=== PATIENT | male | born 1960 | race Two or more races ===

== ENCOUNTER 2016-05-24 22:12 | Emergency (ER) | payer BC ==
[~2016-05-24] VITALS: Ht 190.5 cm; Wt 86.2 kg
[2016-05-24] MEDS ORDERED: IBUPROFEN800 MG ORAL (22:44)
[2016-05-24] MEDS ORDERED: AUGMENTIN 875-1 EAC1 ORAL (22:44)
[2016-05-24 23:02] VITALS: BP 122/74
--- NOTE | 2016-05-24 23:17 | Emergency Room Report ---
History of Present Illness General Chief Complaint: Skin Rash/Abscess Source: Patient Present Illness HPI 55YO M with progressive pain, swelling, redness to right calf since daughter's cat scratched and bit him 2 days prior. Patient was trying to break up fight between 2 cats. Denies assoc fever/chills, neck/auxillary swelling. Applying heat and cold to area of pain with some relief. Allergies: Coded Allergies: NO KNOWN ALLERGIES (Verified Allergy, Unknown, 05/24/16) Patient History Past Medical History: none Past Surgical History: none Pertinent Family History: none Social History: Denies: alcohol use, drug use, smoking Immunizations: UTD Reviewed Nursing Documentation: PMH: Agreed, PSxH: Agreed Nursing Documentation-PMH Past Medical History: No History, Except For Review of Systems All Other Systems: negative except mentioned in HPI Physical Exam Vital Signs Date Time Temp Pulse Resp B/P Pulse Ox O2 Delivery O2 Flow Rate FiO2 05/24/16 22:24 98.1 61 16 118/71 98 Room Air Sp02 EP Interpretation: reviewed, normal General Appearance: normal inspection, well appearing, no apparent distress, alert Head: atraumatic ENT: normal ENT inspection, hearing grossly normal, normal voice Neck: normal inspection, full range of motion, supple, no bony tend Respiratory: normal inspection, lungs clear, normal breath sounds, no respiratory distress, no retraction, no wheezing Cardiovascular #1: regular rate, rhythm, no edema Gastrointestinal: normal inspection, normal bowel sounds, non tender, soft, no guarding, no hernia Genitourinary: no CVA tenderness Musculoskeletal: normal inspection, back normal, normal range of motion, Ariella' s Sign negative Neurologic: normal inspection, alert, oriented x3, responsive, telephone sales representative III-XII nml as tested, motor strength/tone normal, speech normal Psychiatric: normal inspection, judgement/insight normal, mood/affect normal Skin: normal inspection, other - Right calf: 5-6cm oval area of palpable warmth , erythema and swelling. There are 2 definitie animal bite leo to calf. There are also multiple scratches to front of lower right extremity above the ankle. Medical Decision Making Diagnostic Impression: Primary Impression: Cat bite involving extremity Additional Impression: Cellulitis of calf ER Course Afebrile. Localized cellulitis w/out abscess at this time. Rx Augmentin, Ibuprofen PMD followup as needed DC home Last Vital Signs Date Time Temp Pulse Resp B/P Pulse Ox O2 Delivery O2 Flow Rate FiO2 05/24/16 23:02 98.0 62 18 122/74 100 Room Air Status: improved Disposition: HOME, SELF-CARE Condition: Improved Scripts Ibuprofen* (MOTRIN*) 800 Mg Tablet 800 MG ORAL THREE TIMES A DAY for For Pain, #30 TAB 0 Refills Prov: JAEL HASKINS M.D. 05/24/16 Amoxicillin/Potassium Clav 875-125* (AUGMENTIN 875-125 TABLET*) 1 Each Tablet 1 TAB ORAL TWICE A DAY for 5 Days, #10 TAB Prov: JAEL HASKINS M.D. 05/24/16 Patient Instructions: Animal Bite, [id number] Additional Instructions: - Take ALL the antibiotics until finished - Take ibuprofen as needed with food for pain - Return for fever/chills, worsening pain or swelling JAEL HASKINS M.D. May 24, 2016 23:17
== END 2016-05-24 23:04 | disposition home or self-care (01) ==
LOC: EMR 22:32
DX: S81.851A Open bite, right lower leg, initial encounter (principal); S80.811A Abrasion, right lower leg, initial encounter; L03.115 Cellulitis of right lower limb; W55.01XA Bitten by cat, initial encounter; Y93.9 Activity, unspecified; Y92.9 Unspecified place or not applicable
CPT/HCPCS: 99284